=== PATIENT | female | born 1980 | race Caucasian/White ===

== ENCOUNTER → 2022-05-13 | Outpatient (CLI) | payer OTHER | LOC: MAMO 09:30 | DX: Z12.31 Encounter for screening mammogram for malignant neoplasm of breast (principal) | CPT/HCPCS: 77063; 77067 ==

== ENCOUNTER → 2022-06-07 | Outpatient (CLI) | payer OTHER | LOC: US 06-05 14:30 | DX: R92.2 Inconclusive mammogram (principal) | CPT/HCPCS: 76641 ==